=== PATIENT | male | born 1960 | race Caucasian/White ===

== ENCOUNTER 2019-10-11 07:35 | Observation (INO) | payer OTHER ==
[2019-10-09 12:33] LABS: Basophils % 0.4 % (0-1.3); Hematocrit 42.7 % (39.6-49.0); Lymphocytes % 30.2 % (15.3-44.8); MPV 8.2 fL (7.6-11.3); RBC Red Blood Cell Count 4.72 M/uL (4.33-5.43)
--- NOTE | 2019-10-09 12:42 | RAD REPORT ---
EXAM DESCRIPTION: RAD - Chest Pa And Lat (2 Views) - 10/09/2019 12:14 pm CLINICAL HISTORY: PRE OP FOR SURGERY Chest pain. COMPARISON: No comparisons FINDINGS: The lungs are clear. The heart is normal in size. No displaced fractures. Single screw is present in the right shoulder. IMPRESSION: No acute or concerning finding suspected.
--- NOTE | 2019-10-11 07:37 | EKG ---
Test Date: 2019-10-09 Test Time: 12:14:58 Shield Installer: SARA MEASUREMENT RESULTS: Intervals: Rate: 46 MD: 192 QRSD: 88 QT: 438 QTc: 383 [place]: P: 23 MD: 192 QRS: 35 T: 58 INTERPRETIVE STATEMENTS: Sinus bradycardia Septal infarct, age undetermined Abnormal ECG Compared to ECG 01/23/2010 10:30:13 Myocardial infarct finding now present Electronically Signed On 10-11-19 07:32:57 CDT by Delmar Gardiner
[2019-10-11] MEDS ORDERED: CEFAZOLIN/SWI 1gm 1 GM/10 ML SYR ONE (08:05)
[2019-10-11] MEDS ORDERED: Ringers Lactate 1,000 ML IV ONE (08:05)
[2019-10-11] MEDS ORDERED: propofoL 200 MG/20 ML VIAL IV ONE (08:07)
[2019-10-11] MEDS ORDERED: LIDOCAINE 1% MPF 5 ML VIAL ONE (08:08)
[2019-10-11] MEDS ORDERED: MIDAZOLAM HCL 2 MG/2 ML INJ ONE (08:08)
[2019-10-11] MEDS ORDERED: FENTANYL CITR 100 MCG/2 ML ONE (08:08)
[2019-10-11] MEDS ORDERED: ROCURONIUM 50 MG/5 ML VIAL IV ONE (08:08)
--- NOTE | 2019-10-11 08:58 | P.HP ---
Date of Service: 10/11/19 PC: This a 59 year old male presents for a repair of an incarcerated umbilical hernia. HPC: Patient has recently lost weight. Now has a bulge in his emboli kiss. Becoming increasingly more painful. It used to be able to reduce it, but now it will not go back inside. Causing increasing pain and interfering with his ability to work. PMH: Negative PSHx: Negative SOC: No known allergies SYS REVIEW: No cough, wheeze, shortness of breath. No chest pain or palpitations denies any urinary complaints O/E awake alert vital signs are stable HEENT: Within normal limits Chest: Air entry equal bilaterally ABD: Has a incarcerated umbilical hernia, another hernia 2 inches above the umbilicus. LOCO: Intact DATA: Within normal limit IMPRESSION: Incarcerated umbilical hernia PLAN: I will take him to the operating room for a laparoscopic reduction repair of his incarcerated umbilical hernia. We will repair with mesh. The risks of this procedure have been discussed. The possibility of bleeding, infection, injury to bowel and surrounding structures were outlined. Conversion to an open procedure was described. Mesh infection wound infection and need for further surgeries and procedures was discussed. He understands and wants us to proceed.
[2019-10-11] MEDS ORDERED: dexAMETHasone 10 MG/ML VIAL ONE (09:24)
[2019-10-11] MEDS ORDERED: KETOROLAC 30 MG/ML INJ ONE (09:24)
[2019-10-11] MEDS ORDERED: ONDANSETRON 4 MG/2 ML VIAL ONE (09:27)
[2019-10-11] MEDS ORDERED: NEOSTIGMINE 1 MG/ML -5 ML ONE (09:27)
[2019-10-11] MEDS ORDERED: GLYCOPYRROLATE 0.2 MG/ML SYR ONE (09:27)
[2019-10-11] MEDS ORDERED: HYDROMORPHONE HCL 2 MG/ML inj ONE (10:23)
--- NOTE | 2019-10-11 10:27 | P.OP ---
Preoperative diagnosis: Incarcerated umbilical hernia Postoperative diagnosis: Incarcerated umbilical and ventral hernia Primary procedure: Laparoscopic reduction repair of incarcerated umbilical hernia Secondary procedure: Reduction repair of incarcerated ventral hernia Anesthesia: General Estimated blood loss: Less than 10 cc Specimen: Hernia sacs and contents Operative Technique: The patient brought the operating room placed supine on the table. After the induction of adequate general endotracheal anesthesia, there the other was prepped with a DuraPrep solution, he was draped in usual aseptic manner. A left upper quadrants incision was made. This brought down through the skin and subcutaneous tissue. The Visiport was used to enter the peritoneal cavity and created pneumoperitoneum to approximately 12 mm of mercury. Under direct vision a 5 mm trocar was placed a left lower quadrant. We were now able to inspect the abdominal cavity. On inspection of the anterior abdominal wall we conceded omentum had incarcerated itself at the emboli kiss and also through and more superior ventral hernia. Gentle traction was applied to the incarcerated omentum. There were numerous adhesions anchoring it in position. Using the ligature these were taken down using blunt sharp dissection. The omentum was finally reduced back into the peritoneal cavity. At this point attention was turned back towards the anterior abdominal wall defects. There was approximately a 2 cm defect at the emboli kiss, and another ventral hernia an inch and a half above this. The hernia sacs were grasped and dissected back into the peritoneal cavity. There were fully detached and sent for histopathology. At this point, a piece of 15 cm circular mesh was introduced into the peritoneal cavity. Using taste sutures placed on the poles and an Endo Close we were able to bring them up to the anterior abdominal wall. The Pro Tacker was then used to fix this mesh in place. This was done with the intra- abdominal pressure having been reduced to 5 mm of mercury. Another 5 mm trocar had been placed in the right lower quadrant to adequately fixate the mesh and ensure we had good [place] on all its edges. At this point the abdomen was inspected to ensure adequate hemostasis. The specimens removed through the 10 mm trocar site. A Taurus block was then done with 0.25% Marcaine to allow for adequat e analgesia during the postoperative.. The Endo Close was used to approximate the 10 mm trocar site. The pneumoperitoneum was now collapsed, the trocars removed, and laz applied to the skin. At the end of the procedure he was stable when sent to the recovery room. Needle sponge instrument count were correct. No drains were placed. Complications: None Transferred to: Recovery Room Condition: Good
[2019-10-11] MEDS ORDERED: ONDANSETRON 4 MG/2 ML VIAL IV PRN (10:43)
[2019-10-11] MEDS ORDERED: MORPHINE 4 MG/ML SYR IV PRN (10:43)
[2019-10-11 11:44] VITALS: BMI 36.0
[2019-10-11] MEDS: Ringers Lactate 1,000 ML IV SCH ×2 (11:48→18:37)
[2019-10-11] MEDS: HYDROCODONE/APAP 7.5/325 MG TAB PO PRN (18:37)
[2019-10-11 23:53] VITALS: O2SAT 95
[2019-10-12] MEDS: HYDROCODONE/APAP 7.5/325 MG TAB PO PRN (00:43)
[2019-10-12] MEDS: Ringers Lactate 1,000 ML IV SCH (02:56)
[2019-10-12 08:16] VITALS: BP 169/70; TEMP 96.9
== END 2019-10-12 10:37 | disposition home health service (06) ==
LOC: OR 07:35 → 2ND 10:59
PROVIDERS: ADMIT Surgery; ATTEND Surgery
PROC: 0WUF4JZ Supplement Abdominal Wall with Synthetic Substitute, Percutaneous Endoscopic Approach (ICD-10-PCS; principal; 2019-10-11 08:30)
DX: K42.9 Umbilical hernia without obstruction or gangrene (principal); K43.6 Other and unspecified ventral hernia with obstruction, without gangrene; Z11.59 Encounter for screening for other viral diseases
CPT/HCPCS: 93005; 85025; 36415; 88302; 71046; 49653; J2704; J2250; J1170; J3010; J1100; J2710; J0690; G0378 ×4; J7120 ×4; J2405; G0379; U0002